=== PATIENT | male | born 1950 | race Two or more races ===

== ENCOUNTER → 2024-01-30 09:19 | Outpatient (REF) | payer MEDICARE, SELFPAY | LOC: HWRAD 09:19 | PROVIDERS: ATTENDING PHYSICIAN Surgery; FAMILY PHYSICIAN Family Medicine | DX: C64.9 Malignant neoplasm of unspecified kidney, except renal pelvis (principal) | CPT/HCPCS: 76770 ==

== ENCOUNTER → 2024-11-28 12:28 | Outpatient (REF) | payer MEDICARE, SELFPAY | LOC: HWRAD 12:28 | PROVIDERS: ATTENDING PHYSICIAN Nurse Practitioner Family; FAMILY PHYSICIAN Family Medicine; REFERRING PHYSICIAN Surgery | DX: R07.1 Chest pain on breathing (principal) | CPT/HCPCS: 71046 ==

== ENCOUNTER → 2024-12-04 14:35 | Outpatient (REF) | payer MEDICARE, SELFPAY | LOC: HWRAD 14:35 | PROVIDERS: ATTENDING PHYSICIAN Nurse Practitioner Family; FAMILY PHYSICIAN Family Medicine; REFERRING PHYSICIAN Surgery | DX: R10.9 Unspecified abdominal pain (principal) | CPT/HCPCS: 76775 ==